=== PATIENT | female | born 1950 | race Caucasian/White ===

== ENCOUNTER 2021-09-18 20:25 | Emergency (ER) | payer MEDICARE, BC, SELFPAY ==
[2021-09-18 20:40] VITALS: BP 132/88; PULSE 78; RESP 16; TEMP 36.4; O2SAT 96; BMI 19.1
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
--- NOTE | 2021-09-18 20:53 | CRLHL7_ITS ---
For Patients: As a result of the Cures Act, medical imaging exams and procedure reports are released immediately into your electronic medical record. You may view this report before your referring provider. If you have questions, please contact your health care provider. INDICATION: Pain. Injury. TECHNIQUE: Two views right clavicle. FINDINGS: Simple appearing oblique minimally displaced fracture in the distal diaphysis of the clavicle just proximal from the expected insertion of coracoclavicular ligaments. Coracoclavicular and acromioclavicular distances are normal. Dictated by Yohannes Duran MD @ 09/18/2021 9:50:46 PM (Electronically Signed)
== END 2021-09-18 23:03 | disposition home or self-care (01) ==
PROVIDERS: Emergency Provider Student in an Organized Health Care Education/Training Program; PCP Family Medicine
DX: S42.031A Displaced fracture of lateral end of right clavicle, initial encounter for closed fracture (principal); V11.0XXA Pedal cycle driver injured in collision with other pedal cycle in nontraffic accident, initial encounter
CPT/HCPCS: 73000; 99283; 99284

== ENCOUNTER 2023-09-08 11:15 | Outpatient (RCR) | payer MEDICARE, BC, SELFPAY ==
--- NOTE | 2023-08-18 12:08 | PT.OPEX ---
PT [place] Outpatient Eval PT [facility] Outpatient Eval Start: 08/18/23 08:44 Freq: Status: Active Protocol: Document 08/18/23 10:37 NLR (Rec: 08/18/23 12:03 NLR [id number]) E-signed By Trang Shankar DPT Physical Therapy Outpatient Evaluation Insurance Information Recert Due Date 11/16/23 Insurance Name Medicare B,Blue [employer] Provider Fax Number Tom Fitzpatrick MD Medical Diagnosis M76.892 enthesopathy of left lower limb Treating Diagnosis M79.652 Left thigh pain *left proximal hamstring tendinitis/enthesopathy Referring MD Tom Fitzpatrick MD Subjective Subjective Patient reports left hamstring issues for last several months where she'd feel discomfort with end range stance twinge when walking. She was riding her horse three or so weeks ago and the horse spun hard and the pain re-aggravated. She has not had this issue prior to a few months ago and cannot recall any specific injury. Pain Comments 0-2/10 right now; when it is aggravated it feels burny ( with walking or twisting or up stairs). She uses ibuprofen and keeps moving. She will ice it on occasion, which is helpful. Pain is getting better with time but she wants to have tools to control it if it returns. She denies N/T . Date of Last Physician Visit 08/03/23 Current Work Status Retired Occupation Patient is a retired center aisle cashier. She bikes, rides horse, weight lifting, does pilates and balance exercises regularly. She is quite active. Preferred Name Precautions Treatment Precautions/Contraindications R knee ACL surgery with metal pins - UNABLE TO FULLY EXTEND R KNEE Therapy Limitations/Systems Review Not Limited Objective Other/Pertinent Objective HAND DOM: LEFT ROM: R knee lacks 10 degrees extension (longstanding following last ACL surgery), otherwise WFL STRENGTH: Mild B hip abduction weakness 4/5 PALPATION: No tenderness today POSTURE: R shoulder is low, R> L genuvarus, R LE ER (she is trying to volitionally change this), significantly high L PSIS, lumbar lordosis with posterior weight shift at waist, R knee held in flexion, R>L supination EDEMA: None FLEXIBILITY: Hypoflexibility noted R>L hamstring FOOTWEAR: Wearing [place] athletic shoes, she normally wears sandals or riding boots. She does not wear heals. Assessment Assessment/Impression Patient is a very pleasant 72 year old female presenting with several month history of proximal hamstring irritation noticed with squatting, end range stance walking and going up stairs. Pain has improved on it's own, but was re- aggravated when riding horse a few weeks ago. 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 She is eager to do her HEP on her own for a month and then will recheck for progress and HEP progressions. Primary Functional Limitations Very minimal limitation on going up stairs and walking long distances - she continues to do everything. Plan of Care Rehabilitation Potential Excellent Rehabilitation Potential Comments Patient is otherwise healthy and motivated to improve in order to return to prior level of function. Physical Therapy Goals 1. Patient will be independent with home exercise program as instructed, modified and progressed by physical therapist in order to be independently and actively participating in their rehabilitation and return to prior level of function. Goal to be achieved by 10/18/2023. 2. Patient will demonstrate ability to walk for 120 minutes(s) without significant increase in pain greater than 0/10 to allow patient to be able to safely and independently return to participation in desired level of function with daily activities such general workouts without pain or difficulty. Goal to be achieved by 10/18/2023. Coordination/Communication With Referral Source Treatment Plan/Direct Interventions Manual Therapy,Neuromuscular Re-ed,Therapeutic Exercises, Other - See Comments Direct Interventions Clarification dry needling Comments Frequency/Duration 1X/month for 1-2 months Patient Will Be Discharged From Therapy Completion of LTG(s) Evaluation Billing Untimed Code Treatment Minutes 20 PT Eval No Charge No Complexity Low Certification Information Provider Signature Required Yes Provider Signature Shows Agreement With POC & Medical Necessity Physician NPI Number Write NPI# Here Physician Comment/Change : Physician Signature & Date Requested Please Sign/Date Here
== END 2023-10-21 14:46 | disposition home or self-care (01) ==
PROVIDERS: PCP Family Medicine; Visit Provider Orthopaedic Surgery
DX: M76.892 Other specified enthesopathies of left lower limb, excluding foot (principal); Z51.89 Encounter for other specified aftercare
CPT/HCPCS: 97110; 97161

== ENCOUNTER 2024-03-15 15:40 | Emergency (ER) | payer MEDICARE, BC, SELFPAY ==
[2024-03-15] VITALS (11 sets, daily range): BP systolic 152–160; BP diastolic 79–83; PULSE 73–110; RESP 18; TEMP 37.1; O2SAT 95–98; BMI 18.0
--- NOTE | 2024-03-15 16:13 | ED.GENADULT ---
HPI - General Adult General Chief complaint: Chest Pain Stated complaint: Feels like heart attack Time Seen by Provider: 03/15/24 15:52 History of Present Illness HPI narrative: This 73-year-old female comes in reporting upper epigastric and lower sternal chest pain. This is been present for a bit more than the past week. It seems to come and go and occurs much more frequently when she is sitting still. She states that she exercises regularly without any symptoms. She reports that she is here simply wanting to be sure that this is not her heart causing the symptoms. She does have a somewhat recent diagnosis of polymyalgia rheumatica and is currently taking prednisone 10 mg daily. She had tapered off of this medicine but her symptoms returned so she is hoping to taper down again. She does not report any nausea, vomiting, lightheadedness, shortness of breath, diaphoresis, or exercise intolerance. But this discomfort in her upper abdomen and lower chest is not reproducible with a deep breath or certain movements or maneuvers. Related Data Home Medications ?Medication ?Instructions ?Recorded ?Confirmed prednisone 5 mg tablet mg 03/15/24 Previous Rx's ?Medication ?Instructions ?Recorded pantoprazole 20 mg tablet,delayed 20 mg PO DAILY #20 tabs 03/15/24 release (Protonix) Allergies Allergy/AdvReac Type Severity Reaction Status Date / Time Penicillins Allergy Unknown Hives Verified 03/15/24 15:50 Review of Systems Status of ROS: Reports: 10 or more systems reviewed and unremarkable except as noted in History and below Narrative: Constitutional: No fevers, no weight gain or loss. Eyes: No discharge. No vision changes. HENT: No congestion, no sore throat, no ear pain. Cardiovascular: No palpitations. Respiratory: No shortness of breath, no wheezes, no cough. Gastrointestinal: No abdominal pain, no vomiting, no diarrhea. Genitourinary: No dysuria, no hematuria. Musculoskeletal: Normal range of motion. Skin: No rashes, no pruritis. Neurological: No dizziness, weakness, sensory change, speech change. Endo/Heme/Allergies: No bruising or bleeding. No polydipsia. Pysch: no suicidality, no insomnia. She does report her current symptoms to generate anxiety about her health. All other systems reviewed and are negative. [facility] Medical History (Updated 03/15/24 @ 18:06 by Enrique Pa MD) Osteopenia ?M85.80 - Other specified disorders of bone density and structure, unspecified site (ICD-10) Epiretinal membrane (ERM), bilateral ?H35.373 - Puckering of macula, bilateral (ICD-10) Vitamin D deficiency ?E55.9 - Vitamin D deficiency, unspecified (ICD-10) Actinic keratosis ?L57.0 - Actinic keratosis (ICD-10) Surgical History (Updated 08/03/23 @ 08:02 by Randi Brown ~ [facility], [facility]) H/O nasal septoplasty ?Z98.890 - Other specified postprocedural states (ICD-10) S/P ACL reconstruction (12/24/03) ?Z98.890 - Other specified postprocedural states (ICD-10) Social History (Reviewed 11/04/21 @ 13:24 by Randi Brown ~ [facility], [facility]) Smoking Status: Former smoker How often do you have a drink containing alcohol: never How often do you have six or more drinks on one occasion: Never AUDIT-C Alcohol total score: 0 Non-prescribed substance use: denies use Exam Narrative: Exam Narrative: Constitutional: Well-developed, well-nourished, no acute distress. HEENT: Normocephalic, atraumatic. Neck: Normal range of motion. Nontender. Supple. Heart: Regular. No murmurs. Normal rate. Intact distal pulses. Lungs: Clear to auscultation. No chest discomfort. No wheezes, rhonchi, or rales. Abdomen: Normal bowel sounds. Nontender. No rebound tenderness. Genitalia: Deferred. Back: No midline tenderness. Normal range of motion. Extremities: Normal range of motion. No injury. Skin: Intact. No rash. Warm. No erythema or pallor. Neurologic: No altered sensation. No weakness. Alert and oriented. Psychiatric: No suicidality. No anxiety or depression. No insomnia. Nursing notes and vitals signs are reviewed. Const: Vital Signs, click to edit/add: Vital Signs - 24 hr 03/15/24 15:45 03/15/24 16:01 03/15/24 16:02 Temperature 98.8 F Pulse Rate 101 H 95 Pulse Rate [Right Pulse Oximeter] 110 H Respiratory Rate 18 Blood Pressure 152/83 H Blood Pressure [Ri ght Upper Arm] 160/79 H Pulse Oximetry 98 98 98 Oxygen Delivery Me thod Room Air 03/15/24 16:15 Temperature Pulse Rate 88 Pulse Rate [Right Pulse Oximeter] Respiratory Rate Blood Pressure Blood Pressure [Ri ght Upper Arm] Pulse Oximetry 95 Oxygen Delivery Me thod Course Vital Signs Vital signs: Initial Vital Signs Temperature 98.8 F 03/15/24 15:45 Temperature Source Temporal Artery Scan 03/15/24 15:45 Pulse Rate 110 H 03/15/24 15:45 Pulse Rhythm Regular 03/15/24 15:45 Respiratory Rate 18 03/15/24 15:45 Blood Pressure 160/79 H 03/15/24 15:45 Blood Pressure Mean 106 H 03/15/24 15:45 Blood Pressure Position Sitting 03/15/24 15:45 Pulse Oximetry 98 03/15/24 15:45 Oxygen Delivery Method Room Air 03/15/24 15:45 Vital Signs Temperature 98.8 F 03/15/24 15:45 Pulse Rate 110 H 03/15/24 15:45 Respiratory Rate 18 03/15/24 15:45 Blood Pressure 160/79 H 03/15/24 15:45 Pulse Oximetry 98 03/15/24 15:45 Oxygen Delivery Method Room Air 03/15/24 15:45 Temperature 98.8 F 03/15/24 15:45 Pulse Rate 88 03/15/24 16:15 Respiratory Rate 18 03/15/24 15:45 Blood Pressure 152/83 H 03/15/24 16:01 Pulse Oximetry 95 03/15/24 16:15 Oxygen Delivery Method Room Air 03/15/24 15:45 Medical Decision Making [facility] Narrative Medical decision making narrative: This patient is reporting episodes of upper epigastric pain just below her sternum as described above. She arrives here with normal vital signs. She is not displaying concern for a cardiac or pulmonary cause for her symptoms. EKG returns normal as does her lab results including troponin that returns at 0. It does seem that her symptoms are more related to her GI tract and she believes that this is likely the case. I did provide a prescription for Protonix. Lab Data Labs: Lab Results 03/15/24 Range/Units 16:23 WBC 7.08 (4.50-11.00) K/uL RBC 5.06 (4.00-5.20) m/uL Hgb 14.4 (12.0-16.0) gm/dL Hct 43.6 (33.0-51.0) % MCV 86 (80-100) fL MCH 29 (26-34) pg MCHC 33 (32-36) gm/dL RDW Coeff of Valentine 12.4 (11.5-15.5) % Plt Count 276 (140-440) K/uL Neut % (Auto) 84.8 H (42.0-72.0) % Lymph % (Auto) 11.7 L (20-44) % [place] % (Auto) 3.0 (0.0-11.0) % Eos % (Auto) 0.1 (0.0-7.0) % Baso % (Auto) 0.3 (0.0-3.0) % Neut # (Auto) 6.00 (1.7-7.0) K/uL Lymph # (Auto) 0.80 L (0.90-2.90) K/uL [place] # (Auto) 0.20 (0.00-0.90) K/UL Eos # (Auto) 0.01 (0.00-0.50) K/uL Baso # (Auto) 0.02 (0.00-0.30) K/uL Abs Immat Gran (auto) 0.01 (0.00-0.30) K/uL Imm/Tot Granulo (auto) 0.1 % Sodium 138 (135-149) mmol/L Potassium 4.6 (3.6-5.1) mmol/L Chloride 101 (96-114) mmol/L Carbon Dioxide 32 (20-32) mmol/L Anion Gap 5 L (7-15) mEq/L BUN 20 (7-30) mg/dL Creatinine 0.8 (0.5-1.5) mg/dL Estimated Creat Clear 33.99 Estimated GFR 79 ml/min Glucose 105 (60-115) mg/dL Calcium 9.6 (8.4-10.6) mg/dL C-Reactive Protein < 0.5 L (0.5-1.0) mg/dL POC Troponin I 0.00 L (0.01-0.04) ng/ml ECG Data Attestation: I personally reviewed and interpreted this ECG as follows: Interpretation: Normal sinus rhythm. Rate is 88 beats per minute. There are no ST or T-wave abnormalities. Discharge Plan Discharge Clinical Impression: Gastritis, Atypical chest pain Patient Disposition: Home, Self-Care Condition: Stable Additional Instructions: Use Protonix as directed. You may instead substitute with Prilosec, Prevacid, or Nexium which are [id number]. Follow up with MD return if worsening. Prescriptions: New pantoprazole [Protonix] 20 mg tablet,delayed release (DR/EC) 20 mg PO DAILY Qty: 20 2RF No Action prednisone 5 mg tablet Patient Comments: Take 3 Tablets (15 mg) by mouth once daily with a meal.* Follow Up/Referrals: Arabella Parada MD [Primary Care Provider] - Stand Alone Forms: [employer] Info Instructions
[2024-03-15 16:45] LABS: Basophils Absolute Auto 0.02 K/uL (0.00-0.30); Basophils Percent Auto 0.3 % (0.0-3.0); Eosinophils Absolute Auto 0.01 K/uL (0.00-0.50); Eosinophils Percent Auto 0.1 % (0.0-7.0); Hematocrit 43.6 % (33.0-51.0); Hemoglobin* 14.4 gm/dL (12.0-16.0); Immature Granulocytes Abs Auto 0.01 K/uL (0.00-0.30); Immature Granulocytes Pct Auto 0.1 %; Lymphocytes Percent Auto 11.7 % (20-44); Mean Corpuscular HGB Conc 33 gm/dL (32-36); Mean Corpuscular Hemoglobin 29 pg (26-34); Mean Corpuscular Volume 86 fL (80-100); Neutrophils Percent Auto 84.8 % (42.0-72.0); Platelet Count* 276 K/uL (140-440); RDW Coefficient of Variation % 12.4 % (11.5-15.5); Red Blood Count 5.06 m/uL (4.00-5.20); White Blood Count* 7.08 K/uL (4.50-11.00)
[2024-03-15 16:53] LABS: Slide Review Reflex No
[2024-03-15 17:02] LABS: Chloride* 101 mmol/L (96-114); Potassium* 4.6 mmol/L (3.6-5.1); Sodium* 138 mmol/L (135-149)
[2024-03-15 17:05] LABS: Creatinine* 0.8 mg/dL (0.5-1.5); Est. Creatinine Clearance* 33.99; Estimated Glomerular Filt Rate 79 ml/min
[2024-03-15 17:06] LABS: Anion Gap 5 mEq/L (7-15); Blood Urea Nitrogen* 20 mg/dL (7-30); Calcium* 9.6 mg/dL (8.4-10.6); Carbon Dioxide* 32 mmol/L (20-32); Glucose* 105 mg/dL (60-115)
[2024-03-15 17:12] LABS: C Reactive Protein* < 0.5 mg/dL (0.5-1.0)
== END 2024-03-15 18:12 | disposition home or self-care (01) ==
PROVIDERS: Emergency Provider Emergency Medicine Emergency Medical Services; PCP Family Medicine
DX: R07.9 Chest pain, unspecified (principal); K29.70 Gastritis, unspecified, without bleeding
CPT/HCPCS: 36415; 80048; 84484; 85025; 86140; 93005; 99284